=== PATIENT | male | born 1945 | race Caucasian/White ===

== ENCOUNTER → 2016-06-15 | Outpatient (CLI) | payer OTHER, MEDICARE ==
[~2016-06-15] MED LIST: IOPAMIDOL (ISOVUE 370) 100 ML BTL IV ONE
--- NOTE | 2016-06-15 17:56 | CT ---
CT of the Facial Bones without and with contrast 1329 hours History: Cellulitis and abscess of the mouth. Evaluate infection the mandible. Technique: Thin spiral images were obtained through the face from just below the mandible to above th e frontal sinuses pre- and postcontrast. 90 mL Isovue-370 IV contrast was utilized. The data were rec onstructed in the sagittal and coronal plane. I also performed 3D reconstructions at the workstation to help the physician visualized osseous detail. Dose reduction techniques were utilized. Findings: There is heterogeneous mixed lytic and sclerotic process associated with the anterior marci n of the mandible compatible with history of osteomyelitis. There is erosion of the anterior mandible in region of previous roots right and left central and lateral incisor of the mandible. There is met al stem from previous implant extending into the mottled anterior Mandible to the right of midline. T here is no evidence of erosion associated with the remaining teeth of the mandible. There is erosion associated with metal stem associated with the left first molar of the alveolar ridg e. There is some sclerosis of the adjacent alveolar ridge that extends to the floor of the left maxil mark anthony sinus where there is moderate mucosal thickening inferiorly that is probably reactive. The remai martín roots of the alveolar ridge are normal in appearance without associated additional erosion. Along the inferior margin of the anterior mandible there are 4 complex collections with peripheral en hancement. Each collection measures about 10 - 15 mm best seen on postcontrast series 5, image 250. T here is associated edema and adjacent cellulitis in these regions along the undersurface of the arelis ble. Prominent mildly thickened lymph nodes are also seen in the submental region bilaterally. There is also thickening of the soft tissues along the anterior and anterolateral aspect of the mandible co mpatible with inflammation without associated additional abscess. There is no evidence of abscess adj acent to the alveolar ridge on either side. The remaining soft tissues appear to be relatively normal . The submandibular glands are relatively small in size without focal mass. The parotid glands are norm al in appearance. There is normal enhancement of the visualized vasculature within the upper neck as well as normal appearance of the visualized intracranial vessels. There is mucosal thickening associa trent with anterior ethmoid sinuses as well as moderate mucosal thickening inferior left maxillary sinu s and mild inferior right maxillary sinus mucosal thickening. The sphenoid and frontal sinuses as wel l as mastoid air cells are clear. Impression: 1. Erosion and patchy lucency and sclerosis associated with the anterior mandible compatible with his tory of osteomyelitis. 2. Tiny possible abscess collections along the inferior anterior margin of the mandible as detailed a pratima measuring 10 to 15 mm. 3. Erosion associated with metal stem from previous dental implants to the right of midline anterior mandible and associated with left first molar of the alveolar ridge. 4. Moderate mucosal thickening inferior left maxillary sinus that appears be related to erosion and c hronic inflammation and possible infection left alveolar ridge.
== END ==
LOC: CIMAGING 13:04
DX: K12.2 Cellulitis and abscess of mouth (principal)
CPT/HCPCS: 70488; Q9967

== ENCOUNTER 2016-06-16 12:19 | Day surgery (SDC) | payer OTHER, MEDICARE ==
[~2016-06-16 12:19] MED LIST changes: +BACITRACIN 50,000 UNITS/10 ML SYR IRR ONE; +CLINDAMYCIN 600 MG/DEXTROSE 50 ML IV ONE; -IOPAMIDOL (ISOVUE 370) 100 ML BTL IV ONE; +LIDO/EPI 2%** Not for Epidural 20 ML MDV ONE; +POLYMYXIN B SULFATE 500,000 UNIT/10 ML SYR IRR ONE
[2016-06-16] MEDS ORDERED: LIDOCAINE 1% 5 ML SDV ID PRN (13:24)
[2016-06-16] MEDS ORDERED: LR 1,000 ML IV ONE (13:24)
[2016-06-16] MEDS ORDERED: ROCURONIUM 50 MG/5 ML VIAL ONE (14:02)
[2016-06-16] MEDS ORDERED: fentaNYL 100 MCG/2 ML INJ ONE ×3 (14:02→16:13)
[2016-06-16] MEDS ORDERED: LIDOCAINE 2% 5 ML SDV ONE (14:02)
[2016-06-16] MEDS ORDERED: PROPOFOL 200 MG/20 ML VIAL ONE (14:02)
[2016-06-16] MEDS ORDERED: MIDAZOLAM 2 MG/2 ML VIAL ONE (14:08)
[2016-06-16] MEDS ORDERED: BUPIVACAINE/EPI 0.25% 30 ML SDV ONE (14:10)
[2016-06-16] MEDS ORDERED: DEXAMETHASONE 4 MG/ML VIAL ONE (14:37)
[2016-06-16] MEDS ORDERED: epHEDrine SULFATE 10 MG/ML SYR ONE (14:54)
[2016-06-16] MEDS ORDERED: GLYCOPYRROLATE 0.2 MG/1 ML VIAL ONE (15:27)
[2016-06-16] MEDS ORDERED: SUGAMMADEX SODIUM 200 MG/2 ML VIAL IVP ONE (15:27)
[2016-06-16] MEDS ORDERED: ONDANSETRON 4 MG/2 ML VIAL ONE (15:27)
[2016-06-16] MEDS ORDERED: OXYCODONE/APAP 5/325 TAB PO PRN (16:09)
== END 2016-06-16 17:55 | disposition home or self-care (01) ==
LOC: FSGY 12:19
PROVIDERS: ATTEND Dentist Oral and Maxillofacial Surgery
PROC: 0NC Head and Facial Bones, Extirpation (ICD-10-PCS; 2016-06-16)
PROC: 0NC Head and Facial Bones, Extirpation (ICD-10-PCS; principal; 2016-06-16 15:45)
DX: M27.2 Inflammatory conditions of jaws (principal); K21.9 Gastro-esophageal reflux disease without esophagitis; E78.5 Hyperlipidemia, unspecified; I10 Essential (primary) hypertension; Z88.0 Allergy status to penicillin
CPT/HCPCS: J1100; J2250; J2405; J2704; J3010

== ENCOUNTER → 2016-06-22 | Day surgery (SDC) | payer OTHER, MEDICARE | END | disposition home or self-care (01) | LOC: FIMAGING 15:05 | PROVIDERS: ATTEND Internal Medicine Infectious Disease | DX: M27.2 Inflammatory conditions of jaws (principal); Z79.2 Long term (current) use of antibiotics; Z53.9 Procedure and treatment not carried out, unspecified reason ==

== ENCOUNTER → 2016-06-23 | Day surgery (SDC) | payer OTHER, MEDICARE ==
--- NOTE | 2016-06-23 17:48 | IR ---
Imaging-Guided Peripherally Inserted Central Catheter History: Central line access for multiple medications. Prophylactic Antibiotic: Cefazolin was not ordered and administered for antimicrobial prophylaxis be cause it was not medically necessary for this procedure. VTE Prophylaxis: There is not an order for VTE prophylaxis to be given within 24 hours after procedu re end time because it was not medically necessary for this procedure. Crosscutting Measure: Patient's current list of medications including all known prescriptions, over- the-counters, herbals, and vitamin/mineral/dietary supplements are reviewed. Medications' name, dosa ge, frequency, and route of administration are confirmed. Technique: Following informed consent, the right arm was prepped and draped in sterile fashion. 1% Xy locaine was used for local anesthetic. All elements of maximal sterile barrier technique including cap, mask, sterile gown, sterile gloves, large sterile sheet, hand hygiene, and 2% chlorhexidine for cutaneous antisepsis, followed. Ultrasound evaluation of potential access site was performed. After successfully identifying a patent vessel, ultrasound guidance was used to puncture the vein. A permanent recording was created for the patient's record. Ultrasound transducer was placed in sterile sleeve and used for real-time imaging guidance over steri le gel to enter the basilic vein. 0.018 measuring wire was passed centrally under fluoroscopic contro l. A skin daniela with scalpel blade was followed by removing the access needle. A 4 Nepalese peel-away sh eath was followed by a 4 Nepalese single-lumen central catheter, trimmed to 44 cm length. The tip of t he catheter was positioned centrally and the guidewire removed. A single fluoroscopic spot image was obtained in inspiration. The hub of the catheter was fixed to the skin using a sterile StatLock adhes mariya device, and a sterile dressing was applied. The catheter was irrigated. Findings: The tip of the central catheter terminates at the junction of the superior vena cava and th e right atrium. Fluoroscopy: 0.2 minutes, 2 images Impression: 4 Nepalese single lumen peripherally inserted central catheter is ready to use.
== END | disposition home or self-care (01) ==
LOC: FIMAGING 08:31
PROVIDERS: ATTEND Radiology Diagnostic Radiology
PROC: B5181ZA Fluoroscopy of Superior Vena Cava using Low Osmolar Contrast, Guidance (ICD-10-PCS; principal; 2016-06-23)
PROC: 02HV33Z Insertion of Infusion Device into Superior Vena Cava, Percutaneous Approach (ICD-10-PCS; principal; 2016-06-23)
DX: M27.2 Inflammatory conditions of jaws (principal)
CPT/HCPCS: 36569; 77001; C1751

== ENCOUNTER → 2016-08-30 | Outpatient (CLI) | payer OTHER, MEDICARE | LOC: FIMAGING 10:17 | PROVIDERS: ATTEND Internal Medicine Infectious Disease | DX: T82.598A Other mechanical complication of other cardiac and vascular devices and implants, initial encounter (principal) ==